=== PATIENT | male | born 1975 | race Caucasian/White ===

== ENCOUNTER 2023-04-06 08:09 | Emergency (ER) | payer BC, SELFPAY ==
[2023-04-06 08:23] VITALS: BP 148/98; PULSE 89; RESP 16; TEMP 36.8; O2SAT 100
--- NOTE | 2023-04-06 08:34 | ED.GENADULT ---
HPI - General Adult General Chief complaint: Unspecified Stated complaint: Trembling;Anxiety;No sleep Time Seen by Provider: 04/06/23 08:21 Source: patient and RN notes reviewed Mode of arrival: ambulatory Limitations: no limitations History of Present Illness HPI narrative: Patient presents today complaining of anxiety symptoms and insomnia for the past month. States, ?I have constant anxiety or terror. States his insomnia is getting worse and is affect states he has tried melatonin and marijuana gummies. The marijuana gummies provide some mild relief, but he does not feel well rested. He has appointment to initiate care with a new PCP on May 04. Patient recently had both of his parents and he believes this is the start of his symptoms. Appears that he may have no family support at home as he states, my tells me it's all in my head. Related Data Allergies Allergy/AdvReac Type Severity Reaction Status Date / Time No Known Allergies Allergy Verified 04/06/23 08:22 Review of Systems Review of Systems: CONSTITUTIONAL: Denies body aches, fever, chills, or sweats. EYES: Denies visual changes, redness, or discharge. ENT: Denies rhinorrhea, congestion, sore throat, or otalgia. CARDIOVASCULAR: Denies chest pain, palpitations, or edema. RESPIRATORY: Denies cough or dyspnea. GASTROINTESTINAL: Denies abdominal pain, nausea, vomiting, or diarrhea. GENITOURINARY: Denies dysuria or hematuria. SKIN: Denies rash, itching, or wounds. MUSCULOSKELETAL: Denies back pain, joint pain, or myalgia. NEUROLOGIC: Denies headache, numbness, tingling, or weakness. PSYCH: + anxiety, insomnia PMFSH Comments At time of signature, I have reviewed and agree with nursing past medical, surgical, social and family history unless otherwise noted. Please see nursing chart for further information. There is no relevant family history pertinent to the presenting complaint Exam Narrative: GENERAL: Well-appearing, well-nourished, and in no acute distress. HEAD: Normocephalic, atraumatic. EYES: EOMI. No redness or drainage. Conjunctivae normal. ENT: Mucous membranes pink and moist. NECK: Normal AROM. CHEST: No respiratory distress. Clear to auscultation. HEART: Regular rate and rhythm. No murmur appreciated. Normal peripheral pulses. EXTREMITIES: Normal range of motion. No edema. SKIN: Warm, dry, no rash. Capillary refill normal. Normal skin turgor. NEURO: No focal deficits. Alert and oriented x3. Gait steady. PSYCH: + anxious Course Course Level of Care: Express Care Visit Vital Signs Vital signs: Vital Signs Temperature 98.2 F 04/06/23 08:23 Pulse Rate 89 04/06/23 08:23 Respiratory Rate 16 04/06/23 08:23 Blood Pressure 148/98 H 04/06/23 08:23 Pulse Oximetry 100 04/06/23 08:23 Temperature 98.2 F 04/06/23 08:23 Pulse Rate 89 04/06/23 08:23 Respiratory Rate 16 04/06/23 08:23 Blood Pressure 148/98 H 04/06/23 08:23 Pulse Oximetry 100 04/06/23 08:23 Reviewed. Pt has been instructed to follow up with his PCP regarding his elevated blood pressure today. Medical Decision Making MDM Narrative Medical decision making narrative: Will prescribe patient a course of hydroxyzine. Provided reassurance. Patient will keep appointment for follow-up. Anticipatory guidance given. Differential Diagnosis Differential Diagnosis: Anxiety, depression, insomnia Vital Signs Vital Signs: Vital Signs Temperature 98.2 F 04/06/23 08:23 Pulse Rate 89 04/06/23 08:23 Respiratory Rate 16 04/06/23 08:23 Blood Pressure 148/98 H 04/06/23 08:23 Pulse Oximetry 100 04/06/23 08:23 Temperature 98.2 F 04/06/23 08:23 Pulse Rate 89 04/06/23 08:23 Respiratory Rate 16 04/06/23 08:23 Blood Pressure 148/98 H 04/06/23 08:23 Pulse Oximetry 100 04/06/23 08:23 Critical Care Time Critical Care Time Critical Care Time: No Discharge Plan Discharge Clinical Impression:
== END 2023-04-06 08:44 | disposition home or self-care (01) ==
PROVIDERS: Emergency Provider Nurse Practitioner; PCP Family Medicine
DX: F41.9 Anxiety disorder, unspecified (principal); G47.00 Insomnia, unspecified
CPT/HCPCS: 99213; G0463

== ENCOUNTER 2024-06-13 01:43 | Day surgery (SDC) | payer BC, SELFPAY ==
[2024-06-01 08:27] VITALS: BMI 23.8
[2024-06-13 08:00] VITALS: BP 131/88; PULSE 78; RESP 18; TEMP 36.1; O2SAT 100
[2024-06-13] MEDS: LACTATED RINGERS 1,000 ML 150 ML IV CONT (08:07)
--- NOTE | 2024-06-13 08:22 | P.PNAN_ITS ---
Anes - Initial Pre Proc Eval Procedure: Operation Date: 06/13/24 09:30 Proposed Procedures p Screening Colonoscopy - Phoenix Champagne DO Date/Time: 06/13/24 08:22 Surgeon: Phoenix Champagne DO Pre Op Diagnosis: Screening for malignant neoplasm of colon Patient Data Age: 48 Gender: M Height: 1.68 m Weight: 66.4 kg Last Vital Signs Temp 36.1 C L 06/13/24 08:00 Pulse 78 06/13/24 08:00 Resp 18 06/13/24 08:00 BP 131/88 06/13/24 08:00 Pulse Ox 100 06/13/24 08:00 O2 Del Method Room Air 06/13/24 08:00 Allergies Allergy/AdvReac Type Severity Reaction Status Date / Time No Known Allergies Allergy Verified 06/13/24 07:59 Home Medications Medication Instructions Recorded Confirmed Type lisinopril 20 mg tablet 20 mg PO DAILY #30 tabs 12/30/23 06/13/24 Rx Patient hx anesthesia problems: none Family hx anesthesia problems: none Results Review: All pre-operative results and documents have been reviewed as part of the pre- operative evaluation. PENDING SALE TO [facility] Past Medical History Medical History Generalized anxiety disorder with panic attacks HTN (hypertension) Social History Social History Smoking status: Never smoker Alcohol intake: current Drinks per week: 10 Substance use: current Substance use type: marijuana Other substance usage details: occ Living arrangements: with family Occupation/Education: occupation Gender identity (if verbalized by the patient): Male Sexual Orientation (if Verbalized by the Patient): Straight or Heterosexual Spiritual care concerns: No Anes - Eval Final PreProcedure Day of Procedure 06/13/24 08:22 Patient weight: normal Heart: regular rate and rhythm Lungs: clear to auscultation Airway: Mallampati scale class II Neurological: alert and oriented Last oral intake: >/= 8 hours ASA classification: II Emergent: no Anesthetic plan: proceed Anesthesia type and monitoring: general GIVS and standard monitoring Results Review: All pre-operative results and documents have been reviewed as part of the pre- operative evaluation. Informed Consent: The patient's anesthetic plan and its attendant risks and benefits were discussed with the patient/family/POA. Questions were solicited and answers provided to the satisfaction of the patient/family/POA.
--- NOTE | 2024-06-13 08:54 | PM.IMHP ---
H&P: HPI History of Present Illness Date/Time: 06/13/24 08:54 Chief Complaint: Screening for colorectal cancer Narrative: This is a 48-year-old man who presents for colonoscopy. Denies family history of colon cancer. He denies any hematochezia or. Review of Systems Review of Systems: All systems reviewed & are unremarkable except as noted in HPI and below Constitutional: Constitutional: Denies chills, Denies fever(s), Denies headache(s) and Denies weight loss Eyes: Eyes: Denies change in vision ENT: Denies dizziness, Denies headache(s), Denies neck mass and Denies throat swelling Cardiovascular: Cardiovascular: Denies chest pain, Denies lightheadedness and Denies dyspnea Respiratory: Respiratory: Denies cough, Denies dyspnea and Denies wheezing Gastrointestinal: Gastrointestinal: Denies abdominal pain, Denies change in bowel habits, Denies nausea and Denies vomiting Genitourinary: Genitourinary: Denies hematuria and Denies dysuria Musculoskeletal: Musculoskeletal: Reports as per HPI Integumentary/Breasts: Skin/Breast: Reports as per HPI Neurologic: Denies dizziness and Denies headache(s) Allergic/Immunologic: Allergic/Immunologic: Denies throat swelling and Denies wheezing PMFSH Past Medical History Medical History Generalized anxiety disorder with panic attacks HTN (hypertension) Social History Social History Smoking status: Never smoker Alcohol intake: current Drinks per week: 10 Substance use: current Substance use type: marijuana Other substance usage details: occ Living arrangements: with family Occupation/Education: occupation Gender identity (if verbalized by the patient): Male Sexual Orientation (if Verbalized by the Patient): Straight or Heterosexual Spiritual care concerns: No Meds Home Medications and Allergies Home Medications Medication Instructions Recorded Confirmed Type lisinopril 20 mg tablet 20 mg PO DAILY #30 tabs 12/30/23 06/13/24 Rx Allergies Allergy/AdvReac Type Severity Reaction Status Date / Time No Known Allergies Allergy Verified 06/13/24 07:59 Vital Signs Vital Signs - 24 hr 06/13/24 08:00 Temperature 97 F L Pulse Rate 78 Respiratory Rate 18 Blood Pressure 131/88 Pulse Oximetry 100 Oxygen Delivery Room Air Exam Const: General: no acute distress and alert Orientation/consciousness: patient oriented x3 HENMT: Head: normocephalic and atraumatic Ears: hearing grossly normal bilaterally Face/Nose/Sinus: Normal nares present Mouth: Yes Normal oral and palatal mucosa present Eyes: Periorbital: periorbital findings normal Sclera: sclerae normal EOM: EOMs intact bilaterally Neck: Neck: normal visual inspection, no lymphadenopathy and trachea midline Chest: Chest palpation & inspection: normal inspection of the chest Resp: Effort & Inspection: normal respiratory effort Auscultation: clear to auscultation bilaterally Cardio: Jugular venous distension: no JVD Rate: regular rate Rhythm: regular rhythm Heart sounds: S1 normal heart sound present and S2 normal heart sound present Peripheral pulses: Peripheral pulses 2+ throughout GI: Inspection: normal to inspection GI Palp: Yes Soft to palpation, No Tenderness to palpation present (GI), No Guarding due to palpation present (GI) and No Rebound tenderness present Percussion: Yes normal to percussion Auscultation: normal bowel sounds : General: Yes no CVA tenderness Back/Spine/Pelvis: Back: no CVA tenderness Neuro: General: patient oriented x3, no focal motor deficits and CN's II-XI intact bilaterally Cognition (Neuro): normal cognition Speech: normal speech Motor exam (neuro): 5/5 motor strength present throughout Extrem: General: capillary refill normal and no clubbing, cyanosis or edema Assessment and Plan Assessment and plan (1) Screening for colore
[2024-06-13 09:13] VITALS: BP 109/71; PULSE 66; RESP 18; O2SAT 97
[2024-06-13 09:23] VITALS: BP 112/78; PULSE 56; RESP 17; O2SAT 98
[2024-06-13 09:33] VITALS: BP 118/58; PULSE 58; RESP 18; O2SAT 98
== END 2024-06-13 09:48 | disposition home or self-care (01) ==
PROVIDERS: PCP Family Medicine; Visit Provider Surgery
PROC: 0DJD8ZZ Inspection of Lower Intestinal Tract, Via Natural or Artificial Opening Endoscopic (ICD-10-PCS; CPT 45378; principal; 2024-06-13 09:30)
DX: Z12.11 Encounter for screening for malignant neoplasm of colon (principal); K63.5 Polyp of colon; K57.30 Diverticulosis of large intestine without perforation or abscess without bleeding; I10 Essential (primary) hypertension; F41.0 Panic disorder [episodic paroxysmal anxiety]; F12.90 Cannabis use, unspecified, uncomplicated
CPT/HCPCS: 45380; 88305; J2003; J2704; J7120